=== PATIENT | male | born 1950 | race Caucasian/White ===

== ENCOUNTER 2017-09-29 14:41 | Inpatient (IN) | payer MEDICARE, OTHER ==
[~2017-09-29] VITALS: Ht 182.9 cm; Wt 104.3 kg
[~2017-09-29 14:41] MED LIST: ASPIRIN EC325 M1; GRALISE300 MG; HYDROCODON-ACE1 EAC8; LISINOPRIL-HCT1 EAC1 PO; LOPRESSOR; MULTIVITAMINS PO; MULTIVITAMINS1 EAC7; PERCOCET 5-3251 EACH PO; SIMVASTATIN20 MG PO; TOPROL XL50 MG; TOPROL XL50 MG PO; VITAMIN B COMP1 EAC7 PO; VITAMIN B PLUS; VITAMINC500; XANAX 0.25 MG0.25 MG PO; ZOCOR; ZOFRAN ODT4 MG PO; ZOFRAN4 MG PO
[2017-09-29 14:51] VITALS: BP 166/98
[2017-09-29 15:01] LABS: HEMATOCRIT 45.6 % (42.0-52.0); HEMOGLOBIN 15.8 gm/dL (14.0-18.0); MCH 29.8 pg (26.0-34.0); MCHC 34.6 g/dL (28.0-37.0); MCV 86.2 fL (80.0-100.0); NUCLEATED RBCS 0 /100WBC; PLATELET COUNT* 140 thou/uL (150-400); RBC 5.29 mil/uL (4.50-6.00); RDW-CV 13.8 % (10.5-14.5); WBC 4.8 thou/uL (4.0-11.0)
[2017-09-29 15:09] LABS: CALCIUM 8.3 mg/dL (8.5-10.1); CREATININE 1.3 mg/dL (0.6-1.3)
[2017-09-29 15:13] LABS: ALBUMIN 4.1 g/dL (3.4-5.0); TOTAL BILIRUBIN 1.1 mg/dL (<0.1-1.0); TOTAL PROTEIN 7.3 g/dL (6.4-8.2)
[2017-09-29 15:15] LABS: URINE BILIRUBIN NEGATIVE (Negative); URINE BLOOD TRACE (Negative); URINE CLARITY CLEAR; URINE COLOR YELLOW; URINE GLUCOSE-RANDOM NEGATIVE (Negative); URINE KETONES NEGATIVE (Negative); URINE LEUKOCYTES-REFLEX NEGATIVE (Negative); URINE NITRITE-REFLEX NEGATIVE (Negative); URINE PROTEIN NEGATIVE (Negative); URINE UROBILINOGEN 0.2 E.U./dl (0.2-1.0)
[2017-09-29 15:28] LABS: ABSOLUTE EOSINOPHILS 0.1 thou/uL (0.0-0.7); ABSOLUTE LYMPHOCYTES 0.2 thou/uL (0.8-5.3); ABSOLUTE MONOCYTES 0.3 thou/uL (0.0-1.2); ABSOLUTE NEUTROPHILS 4.1 thou/uL (1.6-8.1); PLATELET ESTIMATE DECREASED
[2017-09-29 19:32] LABS: CALCIUM 7.8 mg/dL (8.5-10.1); CREATININE 1.1 mg/dL (0.6-1.3); POTASSIUM 3.9 mmol/L (3.5-5.1)
[2017-09-29 21:44] VITALS: BP 156/80
[2017-09-29 22:15] VITALS: BP 167/85
[2017-09-30 03:35] LABS: ABSOLUTE LYMPHOCYTES 0.6 thou/uL (0.8-5.3); ABSOLUTE MONOCYTES 0.4 thou/uL (0.0-1.2); ABSOLUTE NEUTROPHILS 2.5 thou/uL (1.6-8.1); BASOPHILS 0.7 %; EOSINOPHILS 0.6 %; HEMATOCRIT 39.8 % (42.0-52.0); LYMPHOCYTES 16.8 %; MCH 29.8 pg (26.0-34.0); MCHC 34.5 g/dL (28.0-37.0); MCV 86.3 fL (80.0-100.0); MONOCYTES 10.6 %; MPV 9.5 fl. (7.2-11.1); NUCLEATED RBCS 0 /100WBC; PLATELET COUNT* 113 thou/uL (150-400); POLYS 71.3 %; RBC 4.61 mil/uL (4.50-6.00); WBC 3.4 thou/uL (4.0-11.0)
[2017-09-30 03:36] LABS: HEMOGLOBIN 13.7 gm/dL (14.0-18.0)
[2017-09-30 03:50] LABS: CALCIUM 7.3 mg/dL (8.5-10.1); CREATININE 1.1 mg/dL (0.6-1.3); MAGNESIUM 1.9 mg/dL (1.8-2.4); POTASSIUM 3.8 mmol/L (3.5-5.1)
--- NOTE | 2017-09-30 06:54 | NUR ---
PATIENT ARRIVED ON UNIT AT APPROX 2145. PATIENT ALERT AND ORIENTED TIMES FOUR. BOWEL SOUNDS ON LEFT SIDE AR VERY HIGH PITCHED AND HYPERACTIVE. NORMAL BOWEL SOUNDS ON RIGHT SIDE. ABD SLIGHTLY DISTENDED. COMPLAINTS OF PAIN, CONTROLLED WITH IV PAIN MEDICATION AT THIS TIME. NO NAUSEA NOTED. PATIENT HAS LIQUID STOOL AND IS PASSING GAS. EDUCATION DONE ON HOW STOOL CAN STILL MOVE THROUGH AN OBSTRUCTION, BEATRICE PARTIAL OBSTRUCTION. NO SKIN ISSUES NOTED. 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 IV PATENT TO FLUIDS. NPO STATUS MAINTAINED THROUGH THE NIGHT.
[2017-09-30 07:45] VITALS: BP 155/78
[2017-09-30 16:15] VITALS: BP 171/87
--- NOTE | 2017-09-30 18:40 | NUR ---
PT ALERT AND ORIENTED X4. PT HAS HYPERACTIVE BOWEL SOUNDS WITH A HIGH PITCH WHISTLE SOUND ON RIGHT UPPER AND LOWER ABDOMEN. PT HAS BEEN HAVING DIARRHEA. ABDOMINAL X-RAY ORDERED AND COMPLETED. CT SCAN COMPLETED, SHOWED POSSIBLE OBX. PT IS ON CLEAR LIQUIDS TOLERATED. PT HAS C/O NAUSEA WHEN TRYING TO EAT, OTHERWISE NO COMPLAINTS. PT HAS PAIN IN ABDOMINAL, CRAMPING, RATED AT A 5/10. GAVE FENTANYL Q4 HOURS FOR PAIN. PT HAS R.AC IV WITH NS AT 100ML/HR. PT IS UP AD SAMEER. WILL CONTINUE TO MONITOR.
--- NOTE | 2017-09-30 19:14 | NUR ---
I HAVE READ AND REVIEWED THE DOCUMENTATION BY RC LUTZ, STUDENT NURSE AND AGREE WITH THE DOCUMENTED INTERVENTIONS AND ASSESSMENTS.
[2017-09-30 23:17] VITALS: BP 165/85
--- NOTE | 2017-10-01 06:26 | NUR ---
PT SLEPT WELL OVERNIGHT. REQUESTING IV PAIN AND NAUSEA MED X1 THIS SHIFT WITH GOOD RESULTS, NO EMESIS THIS SHIFT. TOLERATING CLEAR LIQUIDS. RAC IVF INFUSING PER PUMP, ABX GIVEN ORDERED. UP AD SAMEER IN ROOM WITH STEADY GAIT. ABD SOFT, +BS. PT REPORTS DIARRHEA STOOLS OVERNIGHT, STATES HE FEELS BETTER THIS MORNING AND WILL ASK DR FOR MORE SOLID FOODS. NO LABS THIS MORNING. ABLE TO USE CALL LITE AND MAKE NEEDS KNOWN.
[2017-10-01 07:55] VITALS: BP 167/86
[2017-10-01 16:14] VITALS: BP 163/92
--- NOTE | 2017-10-01 19:21 | NUR ---
PATIENT RESTING IN BED. PATIENT HAS HAD COMPLAINTS OF ABDOMINAL PAIN X 1 THIS AM. PATIENT HAS HAD COMPLAINTS OF NAUSEA, NO VOMITING X 2 TODAY TREATED ADEQUATELY WITH ZOFRAN. PATIENT IS TOLERATING DIET. PATIENT DENIES ANY NEEDS AT THIS TIME. CALL LIGHT WITHIN REACH. WILL CONTINUE TO MONITOR.
[2017-10-01 22:58] VITALS: BP 168/83
--- NOTE | 2017-10-02 06:53 | NUR ---
PT SLEPT ON AND OFF OVERNIGHT. DENIES N/V. RECEIVED IV PAIN MED AT FOR [facility] PAIN 10/07. RAC IVF INFUSING PER PUMP, ABX GIVEN ORDERED. UP AD SAMEER TO BR TO VOID. ABLE TO USE CALL LITE AND MAKE NEEDS KNOWN. TOLERATING SOFT DIET IN SMALL AMOUNTS WELL HE STATES. POSSIBLE DISCHARGE HOME TODAY.
[2017-10-02 08:30] VITALS: BP 173/86
[2017-10-02 16:00] VITALS: BP 164/72
--- NOTE | 2017-10-02 18:16 | NUR ---
PATIENT IS ALERT AND ORIENTED TODAY VERY PLEASANT. VITAL SIGNS STABLE ON ROOM AIR, UP AD SAMEER IN ROOM, SOME CONPLAINTS OF PAIN THAT IS CONTROLLED WITH IV PAIN MEDICATIONS. PATIENT HAS NPO WAITING ON ABDOMINAL SERIES RESULTS TO COME IN. CALL LIGHT IS IN REACH, FAMILY IS AT [place], WILL CONTINUE TO MONITOR.
[2017-10-02 19:40] VITALS: BP 144/61
--- NOTE | 2017-10-03 06:23 | NUR ---
ASSESSMENT COMPLETE. PT SLEPT THROUGH THE NIGHT WITHOUT ANY CONCERNS. PT IS ON ROOM AIR WITH [place] SATS. PT GIVEN CLEAR LIQUID DIET AND TOLERATED. PT REPORTS 2 BM'S YESTERDAY AND DENIES N/V. IV FLAGYL GIVEN ORDERED. PT DENIES NEED FOR PAIN MEDICATION DURING THE NIGHT. PT IS UP AD SAMEER WITH STEADY GAIT. SEE ASSESSMENT AND VITALS FOR OTHER DETAILS. CALL LIGHT WITHIN REACH, WILL CONTINUE PLAN OF CARE
[2017-10-03 08:30] VITALS: BP 166/77
--- NOTE | 2017-10-03 15:31 | NUR ---
SW met with pt to complete initial assessment, introduce self, and SW role. Pt friend/family bedside. Pt alert, oriented, pleasant. Pt reports living at home with and pt is retired but says that he stays very busy and is independent with ADLs and mobility. Pt shared that he has 7 children. Pt does not anticipate any needs at this time. SW to continue to follow to assist with safe dc planning.
[2017-10-03] MEDS ORDERED: ZESTRIL20 MG PO (16:28)
[2017-10-03 16:29] VITALS: BP 166/77
--- NOTE | 2017-10-03 18:36 | NUR ---
PATIENT IS ALERT AND ORIENTED TODAY VERY PLEASANT UP AD SAMEER ROOM. HAS TOLERATED DIET TODAY. VITAL SIGNS STABLE ON ROOM AIR. NO COMPLAINTS OF ANY NAUSEA OR PAIN TODAY. PATIENT IS BEING DISCHARGED TODAY TO HOME. PATIENT IS GOING WITH .
[2017-10-03 18:49] VITALS: BP 166/77
== END 2017-10-03 19:00 | disposition home or self-care (01) | DRG 372 ==
LOC: M.ERS 14:41 → M.TBA-ER 16:39 → M.3W 16:39
PROVIDERS: Physician Assistant; Surgery; ADMIT Internal Medicine
DX: A04.9 Bacterial intestinal infection, unspecified (principal); K56.600 Partial intestinal obstruction, unspecified as to cause; I10 Essential (primary) hypertension; Z90.49 Acquired absence of other specified parts of digestive tract; Z87.442 Personal history of urinary calculi; Z79.82 Long term (current) use of aspirin; Z79.899 Other long term (current) drug therapy